=== PATIENT | male | born 2000 | race Caucasian/White ===

== ENCOUNTER 2023-02-16 10:40 | Outpatient (CLI) | payer BC ==
[~2023-02-16] VITALS: Ht 175.3 cm; Wt 82.7 kg
[~2023-02-16 10:40] MED LIST: AMOXICILLIN 8751 TAB PO; MOTRIN 600600 MG/TAB PO; NORCO 325 MG-51 TAB PO
[2023-02-16 11:20] VITALS: BP 150/84; PULSE 77; TEMP 99.6
[2023-02-16] MEDS ORDERED: ZOFRAN 4MG T4 MG/TAB PO (14:00)
[2023-02-16] MEDS ORDERED: PROTONIX20 MG PO (14:00)
== END 2023-02-16 14:02 ==
LOC: EUO 10:40
DX: K52.9 Noninfective gastroenteritis and colitis, unspecified (principal)
CPT/HCPCS: J7030

== ENCOUNTER 2024-01-31 05:22 | Emergency (ER) | payer BC ==
[~2024-01-31] VITALS: Ht 177.8 cm; Wt 95.0 kg
[~2024-01-31 05:22] MED LIST changes: +PROTONIX20 MG PO; +ZOFRAN 4MG T4 MG/TAB PO
[2024-01-31 05:30] VITALS: TEMP 98.2
[2024-01-31] MEDS ORDERED: NS 1,000 ML IV ONE ×2 (06:00→07:00)
[2024-01-31] MEDS ORDERED: Ondansetron 4 MG/2 ML VIAL IV ONE (06:00)
[2024-01-31] MEDS ORDERED: Ketorolac 30 MG/ML VIAL IV ONE (06:00)
[2024-01-31 06:16] LABS: BASO # 0.1 K/mm3 (0.0-0.2); BASO % 0.8 % (0.0-2.0); EOS # 0.1 K/mm3 (0.0-0.7); EOS % 1.4 % (0.0-4.0); GRAN # 4.4 K/mm3 (1.4-6.5); GRAN % 57.6 % (42.2-75.2); HEMATOCRIT 43.8 % (42.0-52.0); HEMOGLOBIN 14.7 g/dl (13.5-18.0); LYMPH # 2.5 K/mm3 (1.2-3.4); LYMPH % 33.4 % (20.0-51.0); MEAN CELL VOLUME 83 fl (80.0-100.0); MEAN CORPUSCULAR HEMOGLOBIN 28 pg (27-31); MEAN CORPUSCULAR HGB CONC 34 g/dl (33.0-37.0); MEAN PLATELET VOLUME 9.7 fl (7.4-10.4); MONO # 0.5 K/mm3 (0.1-0.6); MONO % 6.7 % (1.7-9.3); PLATELET COUNT 236 K/mm3 (130-400); RED BLOOD COUNT 5.31 M/mm3 (4.20-5.60); REDCELL DISTRIBUTION WIDTH-CV 12.6 % (11.5-14.5)
[2024-01-31 06:38] LABS: ALANINE AMINOTRANSFERASE 20 U/L (0-55); ALBUMIN 4.6 g/dL (3.5-5.0); ALKALINE PHOSPHATASE 82 U/L (40-150); ANION GAP 12 mmol/L (7-16); AST,SGOT 18 U/L (5-34); BILIRUBIN,TOTAL 0.8 mg/dL (0.2-1.2); BLOOD UREA NITROGEN 17 mg/dL (9-21); C-REACTIVE PROTEIN 0.08 mg/dL (0.00-0.50); CALCIUM 9.6 mg/dL (8.4-10.2); CHLORIDE 108 mEq/L (98-107); CREATININE, serum 0.97 mg/dL (0.72-1.25); GLUCOSE 87 mg/dL (70-99); LIPASE 10 U/L (8-78); POTASSIUM 3.5 mEq/L (3.5-4.5); SODIUM 142 mEq/L (136-145); TOTAL PROTEIN 7.8 g/dl (6.2-8.1)
[2024-01-31 06:46] LABS: TROPONIN-I < 0.010 ng/mL (0.00-0.033)
[2024-01-31] MEDS ORDERED: Home Ondansetron ODT 4 MG #2 ODT/PACK PO ONE (07:00)
[2024-01-31] MEDS ORDERED: ZOFRAN ODT4 MG PO (07:02)
[2024-01-31 07:30] VITALS: BP 126/80; PULSE 90
== END 2024-01-31 07:40 | disposition home or self-care (01) ==
LOC: COL.ER 05:22
PROVIDERS: Emergency Medicine
DX: R11.2 Nausea with vomiting, unspecified (principal); R10.13 Epigastric pain
CPT/HCPCS: J1885; J2405; J7030